=== PATIENT | male | born 1935 | race Caucasian/White ===

== ENCOUNTER 2021-12-27 18:30 | Inpatient (IN) ==
[2021-12-27 19:13] LABS: Basophils # 0.1 10*3/uL (0.0-0.2); Basophils % 0.8 % (0.0-0.8); Eosinophils # 0.1 10*3/uL (0.0-0.87); Eosinophils % 2.2 % (0.00-10.9); Hematocrit 35.6 VOL% (42.0-52.0); Hemoglobin 12.3 GM/DL (14.0-18.0); Immature Granulocytes % 0.6 %; Immature Granulocytes Absolute 0.04 #; Lymphocytes # 1.7 10*3/uL (1.4-4.0); Lymphocytes % 26.7 % (21.2-54.2); Mean Corpuscular HGB Conc 34.6 GM/DL (32-36); Mean Corpuscular Volume 98.1 FL (87-102); Mean Platelet Volume 9.9 FL (9.6-12.0); Monocytes # 0.6 10*3/uL (0.11-0.8); Monocytes % 8.7 % (1.7-12.7); Platelet Count 148 T/CUMM (130-400); Red Blood Count 3.63 MC/CUMM (3.8-5.5); Red Cell Distribution Width 13.5 % (9.3-17.3); White Blood Count 6.5 T/CUMM (4-12)
[2021-12-27 19:28] LABS: INR 1.1; PT Patient Result 11.7 SECS (10.1-12.1)
[2021-12-27 19:35] LABS: Albumin 3.2 G/DL (3.4-5.0); Bilirubin,Total 0.6 MG/DL (0.20-1.00); Calcium 8.2 MG/DL (8.5-10.1); Osmolality,Calculated 284.1 MOS/KG (273-304); Potassium 3.8 MMOL/L (3.5-5.1); Total Protein 6.3 G/DL (6.4-8.2)
[2021-12-27] MEDS ORDERED: SODIUM CHLORIDE 0.9% 1,000 ML IV STA (20:05)
[2021-12-27] MEDS ORDERED: propofoL 200 MG/20 ML VIAL IV STA (20:05)
[2021-12-27] MEDS ORDERED: ACETAMINOPHEN 325 MG TABLET PO PRN (20:56)
[2021-12-27] MEDS: MORPHINE 2 MG/1 ML SYRINGE IV PRN (22:02)
[2021-12-27] MEDS: ONDANSETRON 4 MG/2 ML VIAL IV PRN (22:02)
[2021-12-27 22:12] LABS: Bilirubin,Urine Negative (Negative); Blood, Urine Small mg/dL (Negative); Glucose,Urine (UA) Negative (Negative); Ketones,Urine Negative (Negative); Mucus,Urine Occasional /LPF (Occasional); Nitrite,Urine Negative (Negative); Protein,Urine Negative (Negative); Urine Appearance CLEAR (Clear); Urine Color Yellow (Yellow); Urine Specific Gravity 1.031 (1.001-1.035); Urine Urobilinogen < 2.0 eU/dL (<2.0)
[2021-12-28 02:25] LABS: Basophils % 0.1 % (0.0-0.8); Eosinophils % 0.1 % (0.00-10.9); Hematocrit 33.7 VOL% (42.0-52.0); Hemoglobin 11.6 GM/DL (14.0-18.0); Immature Granulocytes % 0.3 %; Immature Granulocytes Absolute 0.03 #; Lymphocytes # 1.1 10*3/uL (1.4-4.0); Lymphocytes % 12.4 % (21.2-54.2); Mean Corpuscular HGB Conc 34.4 GM/DL (32-36); Mean Platelet Volume 9.5 FL (9.6-12.0); Monocytes # 0.6 10*3/uL (0.11-0.8); Monocytes % 7.1 % (1.7-12.7); Platelet Count 126 T/CUMM (130-400); Red Blood Count 3.51 MC/CUMM (3.8-5.5); Red Cell Distribution Width 13.3 % (9.3-17.3); White Blood Count 8.9 T/CUMM (4-12)
[2021-12-28] MEDS: ALBUTEROL/IPRATROPIUM 3 ML NEB RESP TX SCH ×3 (02:37→15:20)
[2021-12-28 02:55] LABS: Calcium 8.1 MG/DL (8.5-10.1); Osmolality,Calculated 276.5 MOS/KG (273-304); Potassium 4.1 MMOL/L (3.5-5.1); Thyroid Stimulating Hormone 1.48 uIU/ml (0.358-3.74)
[2021-12-28] MEDS ORDERED: FUROSEMIDE 20 MG/2 ML VIAL IV SCH (07:00)
[2021-12-28 07:04] LABS: Barbiturates Screen,Urine Negative (Negative); Benzodiazepines Screen,Urine Negative (Negative); Cannabinoid Screen,Urine Negative (Negative); Opiate Screen,Urine Negative (Negative); Phencyclidine Screen,Urine Negative (Negative)
[2021-12-28] MEDS: PANTOPRAZOLE 40 MG TABLET PO SCH (09:09)
[2021-12-28] MEDS: APIXABAN 5 MG TABLET PO SCH ×2 (09:09→22:07)
[2021-12-28] MEDS: CHOLECALCIFEROL 1,000 UNIT TABLET PO SCH (09:09)
[2021-12-28] MEDS: FUROSEMIDE 20 MG/2 ML VIAL IV SCH ×2 (09:10→22:09)
[2021-12-28] MEDS: LEVOFLOXACIN INJ 750 MG/150 ML PREMIX IV SCH (09:12)
[2021-12-28] MEDS: ATORVASTATIN 40 MG TABLET PO SCH (22:07)
[2021-12-28] MEDS: ASPIRIN EC 81 MG TABLET PO SCH (22:07)
[2021-12-29] MEDS: MORPHINE 2 MG/1 ML SYRINGE IV PRN ×3 (00:46→17:47)
[2021-12-29] MEDS: ONDANSETRON 4 MG/2 ML VIAL IV PRN (00:49)
[2021-12-29] MEDS: LEVOFLOXACIN INJ 750 MG/150 ML PREMIX IV SCH (06:36)
[2021-12-29] MEDS: ALBUTEROL/IPRATROPIUM 3 ML NEB RESP TX SCH ×5 (07:20→20:06)
[2021-12-29] MEDS: FUROSEMIDE 20 MG/2 ML VIAL IV SCH (08:31)
[2021-12-29] MEDS: CHOLECALCIFEROL 1,000 UNIT TABLET PO SCH (08:37)
[2021-12-29] MEDS: PANTOPRAZOLE 40 MG TABLET PO SCH (08:37)
[2021-12-29] MEDS: APIXABAN 5 MG TABLET PO SCH ×2 (08:37→21:43)
[2021-12-29] MEDS: ATORVASTATIN 40 MG TABLET PO SCH (21:42)
[2021-12-29] MEDS: ASPIRIN EC 81 MG TABLET PO SCH (21:43)
[2021-12-30] MEDS: SIMETHICONE CHEW 80 MG TABLET PO PRN ×2 (00:19→10:15)
[2021-12-30] MEDS: ALBUTEROL/IPRATROPIUM 3 ML NEB RESP TX SCH ×4 (00:22→19:10)
[2021-12-30] MEDS: LEVOFLOXACIN INJ 750 MG/150 ML PREMIX IV SCH (06:25)
[2021-12-30] MEDS: PANTOPRAZOLE 40 MG TABLET PO SCH (10:15)
[2021-12-30] MEDS: CHOLECALCIFEROL 1,000 UNIT TABLET PO SCH (10:15)
[2021-12-30] MEDS: MORPHINE 2 MG/1 ML SYRINGE IV PRN (12:21)
[2021-12-30] MEDS: ASPIRIN EC 81 MG TABLET PO SCH (21:00)
[2021-12-30] MEDS: ATORVASTATIN 40 MG TABLET PO SCH (21:00)
[2021-12-31] MEDS: ALBUTEROL/IPRATROPIUM 3 ML NEB RESP TX SCH ×4 (00:18→19:20)
[2021-12-31 05:46] LABS: Basophils % 0.2 % (0.0-0.8); Eosinophils # 0.1 10*3/uL (0.0-0.87); Eosinophils % 1.2 % (0.00-10.9); Hematocrit 30.2 VOL% (42.0-52.0); Hemoglobin 10.4 GM/DL (14.0-18.0); Immature Granulocytes % 0.5 %; Immature Granulocytes Absolute 0.03 #; Lymphocytes # 0.9 10*3/uL (1.4-4.0); Lymphocytes % 14.7 % (21.2-54.2); Mean Corpuscular HGB Conc 34.4 GM/DL (32-36); Mean Corpuscular Volume 96.8 FL (87-102); Mean Platelet Volume 10.3 FL (9.6-12.0); Monocytes # 0.8 10*3/uL (0.11-0.8); Monocytes % 13.7 % (1.7-12.7); Neutrophils % 69.7 % (38.7-73.9); Platelet Count 152 T/CUMM (130-400); Red Blood Count 3.12 MC/CUMM (3.8-5.5); Red Cell Distribution Width 13.5 % (9.3-17.3)
[2021-12-31 06:03] LABS: Osmolality,Calculated 266.4 MOS/KG (273-304); Potassium 4.3 MMOL/L (3.5-5.1)
[2021-12-31] MEDS: LEVOFLOXACIN INJ 750 MG/150 ML PREMIX IV SCH (06:09)
[2021-12-31] MEDS: CHOLECALCIFEROL 1,000 UNIT TABLET PO SCH (09:00)
[2021-12-31] MEDS: PANTOPRAZOLE 40 MG TABLET PO SCH (09:01)
[2021-12-31] MEDS ORDERED: LACTULOSE 20 GM/30 ML UDCUP PO PRN (10:18)
[2021-12-31] MEDS: carvediloL 3.125 MG TABLET PO SCH ×2 (14:14→20:27)
[2021-12-31] MEDS: ASPIRIN EC 81 MG TABLET PO SCH (20:27)
[2021-12-31] MEDS: ATORVASTATIN 40 MG TABLET PO SCH (20:27)
[2022-01-01] MEDS: ALBUTEROL/IPRATROPIUM 3 ML NEB RESP TX SCH ×3 (00:16→14:45)
[2022-01-01 06:16] LABS: Basophils % 0.3 % (0.0-0.8); Eosinophils # 0.1 10*3/uL (0.0-0.87); Eosinophils % 2.2 % (0.00-10.9); Hemoglobin 11.5 GM/DL (14.0-18.0); Immature Granulocytes % 0.3 %; Immature Granulocytes Absolute 0.02 #; Lymphocytes % 17.7 % (21.2-54.2); Mean Corpuscular HGB Conc 33.8 GM/DL (32-36); Mean Corpuscular Volume 97.4 FL (87-102); Mean Platelet Volume 9.7 FL (9.6-12.0); Monocytes # 0.7 10*3/uL (0.11-0.8); Neutrophils % 67.5 % (38.7-73.9); Platelet Count 193 T/CUMM (130-400); Red Blood Count 3.49 MC/CUMM (3.8-5.5); Red Cell Distribution Width 13.8 % (9.3-17.3); White Blood Count 5.8 T/CUMM (4-12)
[2022-01-01] MEDS: LEVOFLOXACIN INJ 750 MG/150 ML PREMIX IV SCH (06:22)
[2022-01-01 06:48] LABS: Calcium 9.4 MG/DL (8.5-10.1); Osmolality,Calculated 269.2 MOS/KG (273-304); Potassium 4.9 MMOL/L (3.5-5.1)
[2022-01-01] MEDS: carvediloL 3.125 MG TABLET PO SCH (09:08)
[2022-01-01] MEDS: CHOLECALCIFEROL 1,000 UNIT TABLET PO SCH (09:08)
[2022-01-01] MEDS: PANTOPRAZOLE 40 MG TABLET PO SCH (09:08)
[2022-01-01 16:13] VITALS: BP 114/70
== END 2022-01-01 16:20 | disposition hospice, home (50) | DRG 308 ==
LOC: N.TELES 18:30 → N.ED 18:30 → SUATTDRO 20:56 → N.TELES 22:03
PROVIDERS: ADMIT Hospitalist; ATTEND Internal Medicine

== ENCOUNTER 2022-01-05 14:39 | Inpatient (IN) ==
[2022-01-05 15:52] LABS: Arterial Base Excess iSTAT 6 MMOL/L (-2.5-2.5); Arterial Bicarbonate iSTAT 30.4 MMOL/L (20-26); Arterial O2 Saturation iSTAT 97 % (95-100); Arterial PCO2 iSTAT 43 MM HG (35-48); Arterial PO2 iSTAT 92 MM HG (80-95); Arterial Total CO2 iSTAT 32 MMO/L (23-27); Arterial pH iSTAT 7.453 (7.35-7.45)
[2022-01-05 16:07] LABS: Basophils % 0.5 % (0.0-0.8); Eosinophils # 0.2 10*3/uL (0.0-0.87); Eosinophils % 2.6 % (0.00-10.9); Hematocrit 30.9 VOL% (42.0-52.0); Hemoglobin 10.4 GM/DL (14.0-18.0); Immature Granulocytes Absolute 0.06 #; Lymphocytes # 1.5 10*3/uL (1.4-4.0); Lymphocytes % 25.3 % (21.2-54.2); Mean Corpuscular HGB Conc 33.7 GM/DL (32-36); Mean Corpuscular Volume 96.3 FL (87-102); Mean Platelet Volume 9.2 FL (9.6-12.0); Monocytes # 0.8 10*3/uL (0.11-0.8); Monocytes % 12.9 % (1.7-12.7); Neutrophils % 57.7 % (38.7-73.9); Platelet Count 268 T/CUMM (130-400); Red Blood Count 3.21 MC/CUMM (3.8-5.5); Red Cell Distribution Width 13.3 % (9.3-17.3); White Blood Count 5.9 T/CUMM (4-12)
[2022-01-05 16:10] LABS: Bilirubin,Urine Negative (Negative); Blood, Urine Small mg/dL (Negative); Glucose,Urine (UA) Negative (Negative); Ketones,Urine Negative (Negative); Nitrite,Urine Negative (Negative); Protein,Urine Negative (Negative); RBC,Urine 1 /HPF (0-4); Urine Appearance CLEAR (Clear); Urine Color Yellow (Yellow); Urine Specific Gravity 1.008 (1.001-1.035); Urine Urobilinogen < 2.0 eU/dL (<2.0)
[2022-01-05 16:18] LABS: PT Patient Result 11.3 SECS (10.1-12.1)
[2022-01-05 16:25] LABS: Albumin 2.7 G/DL (3.4-5.0); Bilirubin,Total 1.2 MG/DL (0.20-1.00); Calcium 8.4 MG/DL (8.5-10.1); Osmolality,Calculated 269.2 MOS/KG (273-304)
[2022-01-05] MEDS ORDERED: FUROSEMIDE 40 MG/4 ML VIAL IV STA (16:35)
[2022-01-05] MEDS ORDERED: hydrALAZINE 20 MG/1 ML VIAL IV PRN (17:50)
[2022-01-05 17:57] LABS: Phosphorous 2.9 MG/DL (2.5-4.9)
[2022-01-05 18:00] LABS: Lactic Acid 1.6 MMOL/L (0.4-2.0)
[2022-01-05] MEDS ORDERED: ENOXAPARIN 40 MG/0.4 ML SYRINGE SUBCUT SCH (21:00)
[2022-01-05] MEDS: APIXABAN 5 MG TABLET PO SCH (21:03)
[2022-01-05] MEDS: ATORVASTATIN 40 MG TABLET PO SCH (21:03)
[2022-01-05] MEDS: carvediloL 6.25 MG TABLET PO SCH (21:04)
[2022-01-05] MEDS: SENNA 8.6 MG TABLET PO SCH (21:05)
[2022-01-06 05:36] LABS: Basophils % 0.9 % (0.0-0.8); Eosinophils # 0.2 10*3/uL (0.0-0.87); Eosinophils % 4.5 % (0.00-10.9); Hematocrit 30.4 VOL% (42.0-52.0); Hemoglobin 9.9 GM/DL (14.0-18.0); Immature Granulocytes % 0.9 %; Immature Granulocytes Absolute 0.04 #; Lymphocytes # 1.3 10*3/uL (1.4-4.0); Lymphocytes % 28.7 % (21.2-54.2); Mean Corpuscular HGB Conc 32.6 GM/DL (32-36); Mean Corpuscular Volume 97.4 FL (87-102); Mean Platelet Volume 9.4 FL (9.6-12.0); Monocytes # 0.6 10*3/uL (0.11-0.8); Monocytes % 14.3 % (1.7-12.7); Neutrophils % 50.7 % (38.7-73.9); Platelet Count 289 T/CUMM (130-400); Red Blood Count 3.12 MC/CUMM (3.8-5.5); Red Cell Distribution Width 13.5 % (9.3-17.3); White Blood Count 4.4 T/CUMM (4-12)
[2022-01-06 05:53] LABS: Calcium 8.5 MG/DL (8.5-10.1); Potassium 3.3 MMOL/L (3.5-5.1); Risk Ratio 2.89; VLDL Cholesterol 14.6 MG/DL
[2022-01-06] MEDS ORDERED: FUROSEMIDE 40 MG/4 ML VIAL IV SCH (08:00)
[2022-01-06] MEDS ORDERED: amLODIPine 5 MG TABLET PO SCH (09:00)
[2022-01-06] MEDS ORDERED: BISACODYL 10 MG SUPP RECTAL ONE (09:11)
[2022-01-06] MEDS: CHOLECALCIFEROL 1,000 UNIT TABLET PO SCH (09:48)
[2022-01-06] MEDS: carvediloL 6.25 MG TABLET PO SCH ×2 (09:48→21:18)
[2022-01-06] MEDS: PANTOPRAZOLE 40 MG TABLET PO SCH (09:48)
[2022-01-06] MEDS: ASPIRIN CHEW 81 MG TABLET PO SCH (09:48)
[2022-01-06] MEDS: APIXABAN 5 MG TABLET PO SCH ×2 (09:48→21:18)
[2022-01-06] MEDS: POTASSIUM CHLORIDE 20 MEQ TABLET PO SCH (09:49)
[2022-01-06] MEDS: POLYETHYLENE GLYCOL POWDER 17 GM PACK PO SCH (09:54)
[2022-01-06] MEDS ORDERED: TUBERCULIN SKIN TEST 0.1 ML SYRINGE INTRADERM ONE (13:20)
[2022-01-06] MEDS ORDERED: MAGNESIUM HYDROXIDE SUSP 30 ML UDCUP PO ONE (14:04)
[2022-01-06] MEDS: SPIRONOLACTONE 25 MG TABLET PO SCH (16:47)
[2022-01-06] MEDS: SENNA 8.6 MG TABLET PO SCH (21:19)
[2022-01-06] MEDS: ATORVASTATIN 40 MG TABLET PO SCH (21:19)
[2022-01-07 05:11] LABS: Basophils % 0.6 % (0.0-0.8); Eosinophils # 0.2 10*3/uL (0.0-0.87); Eosinophils % 3.9 % (0.00-10.9); Hematocrit 30.6 VOL% (42.0-52.0); Hemoglobin 10.4 GM/DL (14.0-18.0); Immature Granulocytes % 1.4 %; Immature Granulocytes Absolute 0.07 #; Lymphocytes # 1.5 10*3/uL (1.4-4.0); Lymphocytes % 29.8 % (21.2-54.2); Mean Corpuscular Volume 97.8 FL (87-102); Mean Platelet Volume 9.2 FL (9.6-12.0); Monocytes # 0.8 10*3/uL (0.11-0.8); Monocytes % 14.6 % (1.7-12.7); Neutrophils % 49.7 % (38.7-73.9); Platelet Count 310 T/CUMM (130-400); Red Blood Count 3.13 MC/CUMM (3.8-5.5); Red Cell Distribution Width 13.5 % (9.3-17.3); White Blood Count 5.1 T/CUMM (4-12)
[2022-01-07 05:29] LABS: Calcium 8.9 MG/DL (8.5-10.1); Osmolality,Calculated 274.7 MOS/KG (273-304); Potassium 4.9 MMOL/L (3.5-5.1)
[2022-01-07] MEDS: PANTOPRAZOLE 40 MG TABLET PO SCH (09:09)
[2022-01-07] MEDS: SPIRONOLACTONE 25 MG TABLET PO SCH (09:09)
[2022-01-07] MEDS: carvediloL 6.25 MG TABLET PO SCH ×2 (09:09→16:52)
[2022-01-07] MEDS: APIXABAN 5 MG TABLET PO SCH ×2 (09:09→20:36)
[2022-01-07] MEDS: POTASSIUM CHLORIDE 20 MEQ TABLET PO SCH (09:09)
[2022-01-07] MEDS: ASPIRIN CHEW 81 MG TABLET PO SCH (09:09)
[2022-01-07] MEDS: CHOLECALCIFEROL 1,000 UNIT TABLET PO SCH (09:09)
[2022-01-07] MEDS: POLYETHYLENE GLYCOL POWDER 17 GM PACK PO SCH (09:15)
[2022-01-07] MEDS: ATORVASTATIN 40 MG TABLET PO SCH (20:36)
[2022-01-07] MEDS: SENNA 8.6 MG TABLET PO SCH (21:20)
[2022-01-08 05:30] LABS: Basophils % 0.5 % (0.0-0.8); Eosinophils # 0.2 10*3/uL (0.0-0.87); Eosinophils % 3.8 % (0.00-10.9); Hematocrit 32.9 VOL% (42.0-52.0); Hemoglobin 11.1 GM/DL (14.0-18.0); Immature Granulocytes % 0.4 %; Immature Granulocytes Absolute 0.02 #; Lymphocytes # 1.5 10*3/uL (1.4-4.0); Lymphocytes % 26.5 % (21.2-54.2); Mean Corpuscular HGB Conc 33.7 GM/DL (32-36); Mean Corpuscular Volume 98.2 FL (87-102); Mean Platelet Volume 9.3 FL (9.6-12.0); Monocytes # 0.7 10*3/uL (0.11-0.8); Monocytes % 11.6 % (1.7-12.7); Neutrophils % 57.2 % (38.7-73.9); Platelet Count 350 T/CUMM (130-400); Red Blood Count 3.35 MC/CUMM (3.8-5.5); Red Cell Distribution Width 13.4 % (9.3-17.3); White Blood Count 5.6 T/CUMM (4-12)
[2022-01-08 05:54] LABS: Osmolality,Calculated 272.8 MOS/KG (273-304); Potassium 4.3 MMOL/L (3.5-5.1)
[2022-01-08] MEDS: ASPIRIN CHEW 81 MG TABLET PO SCH (08:18)
[2022-01-08] MEDS: APIXABAN 5 MG TABLET PO SCH (08:19)
[2022-01-08] MEDS: SPIRONOLACTONE 25 MG TABLET PO SCH (08:19)
[2022-01-08] MEDS: POLYETHYLENE GLYCOL POWDER 17 GM PACK PO SCH (08:19)
[2022-01-08] MEDS: carvediloL 6.25 MG TABLET PO SCH (08:19)
[2022-01-08] MEDS: PANTOPRAZOLE 40 MG TABLET PO SCH (08:19)
[2022-01-08] MEDS: CHOLECALCIFEROL 1,000 UNIT TABLET PO SCH (08:19)
[2022-01-08] MEDS: POTASSIUM CHLORIDE 20 MEQ TABLET PO SCH (08:19)
[2022-01-08 11:26] VITALS: BP 145/70
== END 2022-01-08 13:15 | disposition home health service (06) | DRG 291 ==
LOC: N.ED 14:39 → N.EDINP 17:21 → N.3E 18:04
PROVIDERS: ADMIT Internal Medicine Geriatric Medicine; ATTEND Internal Medicine Geriatric Medicine